=== PATIENT | female | born 1975 | race African-American/Black ===

== ENCOUNTER 2017-11-17 03:57 | Emergency (ER) | payer OTHER ==
[~2017-11-17] VITALS: Ht 154.9 cm; Wt 90.7 kg
[2017-11-17] MEDS ORDERED: Tetanus/Diptheria/Pertussis Vaccine 0.5ml Syr IM ONE (04:45)
[2017-11-17] MEDS ORDERED: CEPHALEXIN500 MG ORAL (05:18)
[2017-11-17] MEDS ORDERED: IBUPROFEN600 MG ORAL (05:18)
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
[2017-11-17 05:22] VITALS: BP 140/92
== END 2017-11-17 05:22 | disposition home or self-care (01) ==
LOC: EMR 04:36
DX: S61.211A Laceration without foreign body of left index finger without damage to nail, initial encounter (principal); S61.213A Laceration without foreign body of left middle finger without damage to nail, initial encounter; X99.1XXA Assault by knife, initial encounter; Y92.9 Unspecified place or not applicable; Z23 Encounter for immunization
CPT/HCPCS: 12002; 90471; 90715; 99283; Z7502

== ENCOUNTER 2017-12-07 16:02 | Emergency (ER) | payer OTHER ==
[~2017-12-07] VITALS: Ht 154.9 cm; Wt 90.7 kg
[~2017-12-07 16:02] MED LIST: CEPHALEXIN500 MG ORAL; IBUPROFEN600 MG ORAL
[2017-12-07 16:58] VITALS: BP 133/94
--- NOTE | 2017-12-07 19:26 | Emergency Room Report ---
History of Present Illness General Chief Complaint: Wound Recheck/Suture Removal Source: Patient Present Illness HPI The patient is a 41-year-old female presenting for suture removal. She was seen in the emergency department on November 16 for laceration of left fingers. She denies any complications. As any pain, bleeding, or discharge. She denies any numbness. Allergies: Coded Allergies: No Known Allergies (Unverified , 11/17/17) Patient History Past Medical History: see triage record Pertinent Family History: none Last Menstrual Period: Reviewed Nursing Documentation: PMH: Agreed; PSxH: Agreed Nursing Documentation-PMH Past Medical History: No Stated History Review of Systems All Other Systems: negative except mentioned in HPI Physical Exam Vital Signs Date Time Temp Pulse Resp B/P (MAP) Pulse Ox O2 Delivery O2 Flow Rate FiO2 12/07/17 16:21 98.3 92 14 136/86 99 Room Air 98.2 Sp02 EP Interpretation: reviewed, normal General Appearance: no apparent distress, alert, GCS 15, non-toxic Head: normocephalic, atraumatic Musculoskeletal: back normal, gait/station normal, normal range of motion, non- tender Neurologic: alert, oriented x3, responsive, motor strength/tone normal, sensory intact, speech normal Skin: laceration - L 2nd and 3rd digit Medical Decision Making PA Attestation Dr. Portillo is my supervising physician. Patient management was discussed with my supervising physician Diagnostic Impression: Primary Impression: Visit for suture removal ER Course The patient is a 41-year-old female presenting for suture removal. Differential diagnosis considered: Wound infection, nonhealing wound, cellulitis , abscess, dehiscence PE: NAD Left second and third fingers have sutures in place. Wound well approximated. No erythema. Full active range of motion is intact. Sensation is intact Suture removal: all sutures were removed without complication. No bleeding or discharge. Wound is well approximated. No surrounding erythema. The patient is discharged home and was told to follow-up with her primary doctor Last Vital Signs Date Time Temp Pulse Resp B/P (MAP) Pulse Ox O2 Delivery O2 Flow Rate FiO2 12/07/17 16:58 98.2 89 14 133/94 99 Room Air 98.2 Status: improved Disposition: HOME, SELF-CARE Condition: Improved Referrals: NOT CHOSEN IPA/MD,REFERRING (PCP) Patient Instructions: Wound Check, Suture Removal, Care After Additional Instructions: I discussed my findings with the patient. All questions and concerns have been answered. Treatment and medication compliance have been addressed. I advised the patient that they need to follow up with PMD in 3-5 days. Return to ED if symptoms worsen, new symptoms arise, or if needed for any reason. Patient verbalized understanding of discharge instructions. SAPNA KING Dec 07, 2017 19:26
== END 2017-12-07 16:58 | disposition home or self-care (01) ==
LOC: EMR 16:35
DX: Z48.02 Encounter for removal of sutures (principal); Z48.817 Encounter for surgical aftercare following surgery on the skin and subcutaneous tissue
CPT/HCPCS: 99282

== ENCOUNTER 2018-02-09 14:55 | Emergency (ER) | payer OTHER ==
[~2018-02-09] VITALS: Ht 157.5 cm; Wt 113.4 kg
[2018-02-09] MEDS ORDERED: NKM (15:10)
[2018-02-09 15:12] VITALS: BP 134/85
--- NOTE | 2018-02-09 15:22 | Emergency Room Report ---
History of Present Illness General Chief Complaint: Female Urogenital Problems Source: Patient (Kasi Velasquez) Present Illness HPI 42-year-old female with no significant past medical history here complaining of 1 week of yellow/white watery vaginal discharge after termination of her last menstrual period. Patient denies vaginal ulcers, pain, dysuria, urinary frequency, hematuria, suprapubic pain, flank pain. Does report vaginal pruritus. She is sexually active with 1 male partner, in use. She is not on any control method. Last STI check was 2 months ago negative. Has not been with a new partner since. Denies fever or chills nausea vomiting abdominal pain. (Kasi Velasquez) Allergies: Coded Allergies: No Known Allergies (Unverified , 11/17/17) Patient History Past Medical History: see triage record Past Surgical History: none Pertinent Family History: none Now: No Immunizations: UTD Reviewed Nursing Documentation: PMH: Agreed; PSxH: Agreed (Kasi Velasquez) Nursing Documentation-PMH Past Medical History: No Stated History (Kasi Velasquez) Review of Systems All Other Systems: negative except mentioned in HPI (Kasi Velasquez) Physical Exam Vital Signs Date Time Temp Pulse Resp B/P (MAP) Pulse Ox O2 Delivery O2 Flow Rate FiO2 02/09/18 15:07 98.1 89 18 134/85 100 Room Air Sp02 EP Interpretation: reviewed, normal General Appearance: normal inspection, well appearing, no apparent distress, alert, GCS 15 Head: normocephalic, atraumatic Eyes: bilateral eye normal inspection, bilateral eye PERRL ENT: normal ENT inspection, normal pharynx Neck: normal inspection, full range of motion, supple, thyroid normal Respiratory: normal inspection, chest non-tender, lungs clear, no respiratory distress, no retraction, no wheezing Cardiovascular #1: normal inspection, no edema, no murmur Gastrointestinal: normal inspection, normal bowel sounds, non tender, soft Rectal: deferred Genitourinary: no CVA tenderness Musculoskeletal: normal inspection, back normal, digits/nails normal, gait/ station normal Neurologic: normal inspection, alert, oriented x3, responsive Psychiatric: normal inspection, judgement/insight normal Skin: normal inspection, normal color, no rash, warm/dry Lymphatic: normal inspection, no adenopathy (Kasi Velasquez) Medical Decision Making PA Attestation all diagnoses and treatment plans are reviewed and discussed my supervising physician Dr. Portillo (Kasi Velasquez) Diagnostic Impression: Primary Impression: Vaginitis Additional Impression: Unprotected sexual intercourse ER Course 42-year-old female with no significant past medical history here complaining of 1 week of yellow/white watery vaginal discharge after termination of her last menstrual period. Patient denies vaginal ulcers, pain, dysuria, urinary frequency, hematuria, suprapubic pain, flank pain. Does report vaginal pruritus. She is sexually active with 1 male partner, in use. She is not on any control method. Last STI check was 2 months ago negative. Has not been with a new partner since. Denies fever or chills nausea vomiting abdominal pain. Ddx considered but are not limited to he is to infection, bacterial vaginosis, gonorrhea, chlamydia Vital signs: are WNL, pt. is afebrile H&PE are most consistent with vaginitis due to possible yeast or BV, chlamydia, gonorrhea prophylactic measures ORDERS: azithromycin 500 mg 4 tabs, Flagyl 500 mg, Diflucan ED INTERVENTIONS: None required at this time. DISCHARGE: At this time pt. is stable for d/c to home. Will provide printed patient care instructions, and any necessary prescriptions. Care plan and follow up instructions have been discussed with the patient prior to discharge. patient verbalizes that she wants a treatment without being tested today she is going to urgent care to be tested as she is told that the results will not be ready functions are tested today. She agrees to the treatment plan and wants to be treated for BV, yeast, chlamydia and gonorrhea. Patient has been told to hold off on Flagyl if she raises concern for not drinking any alcohol with Flagyl until she does a vaginal swab and if positive for BV can start taking Flagyl however she decides to take home medication (Kasi Velasquez) Last Vital Signs Date Time Temp Pulse Resp B/P (MAP) Pulse Ox O2 Delivery O2 Flow Rate FiO2 02/09/18 15:07 98.1 89 18 134/85 100 Room Air (Kasi Velasquez) Disposition: HOME, SELF-CARE Condition: Stable Scripts Azithromycin (AZITHROMYCIN) 500 Mg Tablet 2 TAB ORAL BID for 1 Day, #4 TAB Prov: Kasi Velasquez 02/09/18 Metronidazole* (FLAGYL*) 500 Mg Tablet 500 MG ORAL BID for 7 Days, #14 TAB 0 Refills Prov: Kasi Velasquez 02/09/18 Fluconazole (DIFLUCAN) 150 Mg Tablet 150 MG PO ONCE for 1 Day, #1 TAB Prov: Kasi Velasquez 02/09/18 Patient Instructions: Vaginal Yeast Infection, Adult, Vaginitis Additional Instructions: patient prefers to take all medication for possible BV, yeast infection, gonorrhea and Chlamydia patient agrees to go to either urgent care or family practitioner for further testing.she was given an option to wait to take the medication for chlamydia and gonorrhea BV until she has been tested positive for however she decides to take them just to be on the safe side Kasi Velasquez Feb 09, 2018 15:22 Lino Portillo MD Feb 10, 2018 03:04
[2018-02-09] MEDS ORDERED: METRONIDAZOLE500 MG ORAL (15:25)
[2018-02-09] MEDS ORDERED: AZITHROMYCIN500 MG ORAL (15:25)
[2018-02-09] MEDS ORDERED: DIFLUCAN150 MG PO (15:25)
[2018-02-09 15:35] VITALS: BP 134/85
== END 2018-02-09 15:40 | disposition home or self-care (01) ==
LOC: EMR 15:36
DX: N76.0 Acute vaginitis (principal)
CPT/HCPCS: 99283